=== PATIENT | female | born 1975 | race Two or more races ===

== ENCOUNTER 2022-05-21 11:14 | Emergency (ER) | payer MEDICAID ==
[~2022-05-21] VITALS: Ht 162.6 cm; Wt 70.0 kg
[2022-05-21 11:28] VITALS: BP 111/66
[2022-05-21] MEDS ORDERED: IBUPROFEN 600 MG TAB PO ONE (12:45)
[2022-05-21] MEDS ORDERED: HYDR-4902 PO (13:22)
[2022-05-21] MEDS ORDERED: IBUP600T28 PO ×2 (13:22)
[2022-05-21] MEDS ORDERED: ACETAMINOPHEN 500 MG TAB PO ONE (13:30)
== END 2022-05-21 14:10 | disposition home or self-care (01) ==
LOC: ER 11:14
DX: S92.424A Nondisplaced fracture of distal phalanx of right great toe, initial encounter for closed fracture (principal); Z90.710 Acquired absence of both cervix and uterus; W01.0XXA Fall on same level from slipping, tripping and stumbling without subsequent striking against object, initial encounter; Y93.89 Activity, other specified; Y92.89 Other specified places as the place of occurrence of the external cause; Y99.8 Other external cause status
CPT/HCPCS: 73660